=== PATIENT | male | born 1950 | race Caucasian/White ===

== ENCOUNTER → 2017-03-15 | Outpatient (CLI) | payer MEDICARE ==
[2017-03-15 13:39] LABS: HEMOGLOBIN 15.8 g/dL (14.1-18.0); LYMPH # 1.8 K/mm3 (0.7-4.5); LYMPH % 18.1 % (10-50)
[2017-03-15 14:11] LABS: BUN 16 mg/dL (7-18)
[2017-03-15 14:15] LABS: GFR (ESTIMATED) 67 ML/MIN (>60)
--- NOTE | 2017-03-15 17:21 | RADIOLOGY REPORT PS360 ---
FOREARM-LT CLINICAL INDICATION: Left forearm pain LT HAND , WRIST,ARM PAIN ORDERING PHYSICIAN: HERNANDO CHAVEZ APRN PATIENT AGE: 67 years COMPARISON: None FINDINGS: No bony or joint abnormality. IMPRESSION: Negative left forearm
--- NOTE | 2017-03-15 17:22 | RADIOLOGY REPORT PS360 ---
HAND-LT-3 VIEWS HISTORY: Left hand pain LT HAND , WRIST,ARM PAIN ORDERING PHYSICIAN: HERNANDO CHAVEZ APRN PATIENT AGE: 67 years COMPARISON: None FINDINGS: Mild osteoarthritic changes are present at the first metacarpal phalangeal joint. There is some mild flattening of the head of the fourth metacarpal which could be posttraumatic or could be related to avascular necrosis. No acute fracture or dislocation. IMPRESSION: 1. 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 2. Flattening of the head of the fourth metacarpal which may be seen with old trauma or avascular necrosis
--- NOTE | 2017-03-15 17:25 | RADIOLOGY REPORT PS360 ---
WRIST-3 VIEWS-LT HISTORY: Left wrist pain LT HAND , WRIST,ARM PAIN ORDERING PHYSICIAN: HERNANDO CHAVEZ APRN PATIENT AGE: 67 years COMPARISON: None FINDINGS: No fracture or dislocation. No lytic or blastic change. There is normal mineralization. The joint spaces are well-preserved. Hypertrophic changes are present dorsally at the carpal metacarpal junction. There is mild chondrocalcinosis of the triangular fibrocartilage IMPRESSION: 1. No acute finding. 2. Hypertrophic change of the carpometacarpal junction dorsally seen on the lateral view probably at the third metacarpal. This is of questionable clinical significance
== END ==
LOC: LAB 11:49
PROVIDERS: Nurse Practitioner
DX: M25.532 Pain in left wrist (principal); M79.642 Pain in left hand; M79.602 Pain in left arm